=== PATIENT | female | born 1995 | race Caucasian/White ===

== ENCOUNTER 2018-09-26 14:16 | Emergency (ER) | payer BC ==
--- NOTE | 2018-09-26 14:54 | RAD REPORT ---
EXAM DESCRIPTION: US - Extremity Nonvascular Limited - 09/26/2018 2:40 pm CLINICAL HISTORY: r/o abscess;Pain Pain and swelling left leg COMPARISON: No comparisons TECHNIQUE: Real-time sonographic evaluation of the area of interest was performed. FINDINGS: Irregularly-shaped predominately hypoechoic fluid collection is seen anterior left leg abo ve the ankle region measuring approximately 3.0 x 1.8 cm. This likely represents a subcutaneous absce ss.
--- NOTE | 2018-09-26 15:29 | RAD REPORT ---
EXAM DESCRIPTION: RAD - Tib Fib Left - 09/26/2018 3:11 pm CLINICAL HISTORY: Leg pain, soft tissue wound COMPARISON: None. FINDINGS: No fracture is identified. There is no dislocation or periosteal reaction noted. No acute or suspicious bony finding. Soft tissue swelling is present anterior and medial margin of the left lower extremity. No air or for eign body. IMPRESSION: Soft tissue swelling with no air or foreign body in the soft tissues. No acute bone or joint finding.
[2018-09-26] MEDS ORDERED: LIDOCAINE 1% MPF 5 ML VIAL ONE (16:30)
--- NOTE | 2018-09-26 16:33 | ER ---
Nurse's Notes [facility] Name: Peter Mcgrath Age: 22 yrs Sex: Female : 1995 Arrival Date: 09/26/2018 Time: 14:17 Bed 13 Private MD: Sandra Toledo K Diagnosis: Pain in left leg Presentation: 09/26 14:27 Presenting complaint: Patient states: fell a month ago, still having pain and swelling iw to left ankle, feels a knot. Transition of care: patient was not received from another setting of care. Onset of symptoms was August 2018. Risk Assessment: Do you want to hurt yourself or someone else? Patient reports no desire to harm self or others. Initial Sepsis Screen: Does the patient meet any 2 criteria? No. Patient's initial sepsis screen is negative. Does the patient have a suspected source of infection? No. Patient's initial sepsis screen is negative. Care prior to arrival: None. 14:27 Method Of Arrival: Ambulatory iw 14:27 Acuity: LESLIE 4 iw Triage Assessment: 14:47 General: Appears in no apparent distress. comfortable, obese, Behavior is cooperative, bp appropriate for age, anxious. Pain: Complains of pain in anterior aspect of left ankle. EENT: No deficits noted. Neuro: Level of Consciousness is awake, alert, obeys commands, Oriented to person, place, time, situation, Appropriate for age. Cardiovascular: No deficits noted. Respiratory: Airway is patent Respiratory effort is even, unlabored, Respiratory pattern is regular, symmetrical. GI: No signs and/or symptoms were reported involving the gastrointestinal system. : No signs and/or symptoms were reported regarding the genitourinary system. Derm: No deficits noted. Musculoskeletal: Reports pain in anterior aspect of left ankle. 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 - Ebola Screening: : Patient negative for fever greater than or equal to 101.5 degrees Fahrenheit, and additional compatible Ebola Virus Disease symptoms Patient denies exposure to infectious person Patient denies travel to an Ebola-affected area in the 21 days before illness onset No symptoms or risks identified at this time. - Social history:: Smoking status: Patient/guardian denies using tobacco. Screenin:30 Abuse screen: Denies threats or abuse. Denies injuries from another. Nutritional bp screening: No deficits noted. Tuberculosis screening: No symptoms or risk factors identified. Fall Risk None identified. Assessment: 14:30 General: SEE TRIAGE NOTE. bp 15:30 Reassessment: INITIAL RESULTS UNREMARKABLE, PENDING OFFICIAL READ FOR DISPO. bp 16:42 Reassessment: PT D/C HOME AMBULATORY WITH FAMILY, DX WITH MUSCULOSKELETAL PAIN. bp Vital Signs: 14:31 BP 116 / 65; Pulse 74; Resp 16; Temp 98.3; Pulse Ox 96% on R/A; iw 15:16 BP 145 / 77; Pulse 83; Resp 18; Temp 97.8(O); Pulse Ox 99% on R/A; 5 ED Course: 14:17 Patient arrived in ED. ag5 14:17 Sandra Toledo MD is Private Physician. ag5 14:24 [facility] kb 14:24 Oscar Crane MD is Attending Physician. kb 14:30 Preston Tenorio, CORDELL is Primary Nurse. bp 14:30 Triage completed. iw 14:30 Patient has correct armband on for positive identification. Bed in low position. Call bp light in reach. Side rails up X2. Adult w/ patient. 14:32 Arm band placed on. iw 14:40 US Extrmty Nonvasular Limited In Process Unspecified. EDMS 15:11 Tib Fib Left XRAY In Process Unspecified. EDMS 16:43 No provider procedures requiring assistance completed. Patient did not have IV access bp during this emergency room visit. Administered Medications: 16:10 Drug: Lidocaine (1 %) 1 vials {Note: at b/s for provider.} Volume: 5 ml; Route: bp Infiltration; Outcome: 16:32 Discharge ordered by . kb 16:44 Discharged to home ambulatory, with family. bp 16:44 Condition: stable 16:44 Discharge instructions given to patient, Instructed on discharge instructions, follow up and referral plans. Demonstrated understanding of instructions, follow-up care. 16:45 Patient left the ED. bp Signatures: Dispatcher [employer] EDKrystle Kirkpatrick, PILL COATER-C PILL COATER-Ckb Bertha Giraldo, RN RN Antionette Richey 5 Preston Tenorio RN RN Cristóbal Boykin 5
--- NOTE | 2018-09-26 16:33 | EDPHYS ---
Physician Documentation [facility] Name: Peter Mcgrath Age: 22 yrs Sex: Female : 1995 Arrival Date: 09/26/2018 Time: 14:17 Bed 13 Private MD: Sandra Toledo K ED Physician Oscar Crane HPI: 09/26 16:14 This 22 yrs old Female presents to ER via Ambulatory with complaints of Fall kb Injury, Ankle Swelling. 16:14 Details of fall: The patient fell from an upright position. Onset: The symptoms/episode kb began/occurred 3 week(s) ago. Associated injuries: The patient sustained left kraus, swelling. Severity of symptoms: At their worst the symptoms were mild, moderate, in the emergency department the symptoms are unchanged. The patient has not experienced similar symptoms in the past. The patient has not recently seen a physician. Pt reports pain to left kraus s/p fall on 09/03/18. Reports pain has continued and now has a knot. 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 - Ebola Screening: : Patient negative for fever greater than or equal to 101.5 degrees Fahrenheit, and additional compatible Ebola Virus Disease symptoms Patient denies exposure to infectious person Patient denies travel to an Ebola-affected area in the 21 days before illness onset No symptoms or risks identified at this time. - Social history:: Smoking status: Patient/guardian denies using tobacco. ROS: 16:07 Constitutional: Negative for fever, chills, and weight loss, Cardiovascular: Negative kb for chest pain, palpitations, and edema, Respiratory: Negative for shortness of breath, cough, wheezing, and pleuritic chest pain, Abdomen/GI: Negative for abdominal pain, nausea, vomiting, diarrhea, and constipation, Skin: Negative for injury, rash, and discoloration, Neuro: Negative for headache, weakness, numbness, tingling, and seizure. 16:07 MS/extremity: Positive for injury or acute deformity, pain, swelling, tenderness, of the left kraus. Exam: 16:13 Constitutional: This is a well developed, well nourished patient who is awake, alert, kb and in no acute distress. Head/Face: Normocephalic, atraumatic. Chest/axilla: Normal chest wall appearance and motion. Nontender with no deformity. No lesions are appreciated. Cardiovascular: Regular rate and rhythm with a normal S1 and S2. No gallops, murmurs, or rubs. Normal PMI, no JVD. No pulse deficits. Respiratory: Lungs have equal breath sounds bilaterally, clear to auscultation and percussion. No rales, rhonchi or wheezes noted. No increased work of breathing, no retractions or nasal flaring. Abdomen/GI: Soft, non-tender, with normal bowel sounds. No distension or tympany. No guarding or rebound. No evidence of tenderness throughout. Back: No spinal tenderness. No costovertebral tenderness. Full range of motion. Skin: Warm, dry with normal turgor. Normal color with no rashes, no lesions, and no evidence of cellulitis. Neuro: Awake and alert, GCS 15, oriented to person, place, time, and situation. Cranial nerves II-XII grossly intact. Motor strength 5/5 in all extremities. Sensory grossly intact. Cerebellar exam normal. Normal gait. 16:13 Musculoskeletal/extremity: Extremities: grossly normal except: noted in the left kraus: pain, tenderness, palpable mass beneath skin, no redness or other signs of infection, ROM: no acute changes, Circulation is intact in all extremities. Sensation intact. Weight bearing: able to fully bear weight, without difficulty. Vital Signs: 14:31 BP 116 / 65; Pulse 74; Resp 16; Temp 98.3; Pulse Ox 96% on R/A; iw 15:16 BP 145 / 77; Pulse 83; Resp 18; Temp 97.8(O); Pulse Ox 99% on R/A; mh5 MDM: 14:24 Patient medically screened. kb 16:07 Data reviewed: vital signs, nurses notes. Data interpreted: Pulse oximetry: on room air kb is 99 %. Interpretation: normal. 16:30 Counseling: I had a detailed discussion with the patient and/or guardian regarding: the kb historical points, exam findings, and any diagnostic results supporting the discharge/admit diagnosis, radiology results, the need for outpatient follow up, a family practitioner, to return to the emergency department if symptoms worsen or persist or if there are any questions or concerns that arise at home. 16:30 ED course: lidocaine administered just above fluid collection. 18G needle used to kb puncture fluid collection. Aspirated serous fluid. No purulent fluid noted. Pt tolerated procedure well. 09/26 14:26 Order name: Tib Fib Left XRAY; Complete Time: 15:33 kb 09/26 14:26 Order name: US Extrmty Nonvasular Limited; Complete Time: 15:00 kb Administered Medications: 16:10 Drug: Lidocaine (1 %) 1 vials {Note: at b/s for provider.} Volume: 5 ml; Route: bp Infiltration; Disposition: 17:02 Co-signature as Attending Physician, Oscar Crane MD. rn Disposition: 09/26/18 16:32 Discharged to Home. Impression: Pain in left leg. - Condition is Stable. - Discharge Instructions: Musculoskeletal Pain. - Medication Reconciliation Form, Thank You Letter, Antibiotic Education, Prescription Opioid Use form. - Follow up: Private Physician; When: 2 - 3 days; Reason: Recheck today's complaints, Continuance of care, Re-evaluation by your physician. Follow up: Emergency Department; When: As needed; Reason: Worsening of condition. Signatures: Dispatcher [employer] EDKrystle Kirkpatrick, RIOS SALESPERSON FLOOR COVERINGS-Tristanb Bertha Giraldo, Oscar Richey RN, MD MD rn Peltier, Brian, RN RN bp Corrections: (The following items were deleted from the chart) 16:45 16:32 09/26/2018 16:32 Discharged to Home. Impression: Pain in left leg. Condition is bp Stable. Forms are Medication Reconciliation Form, Thank You Letter, Antibiotic Education, Prescription Opioid Use. Follow up: Private Physician; When: 2 - 3 days; Reason: Recheck today's complaints, Continuance of care, Re-evaluation by your physician. Follow up: Emergency Department; When: As needed; Reason: Worsening of condition. kb
== END 2018-09-26 16:45 | disposition home or self-care (01) ==
LOC: ER 14:16
DX: M79.662 Pain in left lower leg (principal)
CPT/HCPCS: 76882; 99283